=== PATIENT | female | born 1995 | race Caucasian/White ===

== ENCOUNTER 2017-05-13 18:02 | Emergency (ER) | payer OTHER ==
--- NOTE | 2017-05-13 20:34 | DIAGNOSTIC IMAGING REPORT ---
PROCEDURE: CT ABD/PELVIS WITH CONTRAST CLINICAL INDICATION: ABDOMINAL PAIN TECHNIQUE: 125 ml of Isovue 300 were injected intravenously and axial images were obtained of the entire abdomen and pelvis with sagittal and coronal reformations. COMPARISON: None. FINDINGS: ABDOMEN: Lung bases are clear. Normal heart size. Liver, gallbladder, pancreas, spleen, adrenal glands and kidneys are normal. Normal abdominal aorta. Moderate stool in the ascending colon. PELVIS: Normal appendix. 1.9 cm involuting right ovarian cyst. Uterus and bladder are normal. No inflammatory changes or free fluid. Bones are unremarkable. IMPRESSION: 1. 1.9 cm involuting right ovarian cyst 2. Results discussed with Ileana Patel All CT scans at this facility use dose modulation, iterative reconstruction, and/or weight-based dosing when appropriate to reduce radiation dose to as low as reasonably achievable.
--- NOTE | 2017-05-13 21:53 | ED CLINICAL REPORT ---
Clinical Report - Physicians/Mid Levels [facility] [address] [place] [address] 05/13/2017 18:02 Patient: SILVA BLANC Time Seen: 19:19; initial patient contact, initial documentation, patient care assumed. Arrived- By private vehicle. Historian- patient. HISTORY OF PRESENT ILLNESS Chief Complaint: ABDOMINAL PAIN. At its maximum, severity described as severe. When seen in the E.D., severity described as severe. Modifying factors- worsened by movement. Not relieved by anything. It is described as "pain", sharp and stabbing. No radiation. It is described as located in the right lower quadrant. This started yesterday and is still present. It was abrupt in onset and has been constant. No nausea, loss of appetite, vomiting or diarrhea. No additional abdominal pain. No recent travel. Similar symptoms previously: None. Recent medical care: Not recently seen/assessed. REVIEW OF SYSTEMS No constipation, black stools, hematemesis, difficulty with urination or pain with urination. No urinary frequency, missed periods, abnormal bleeding, fever or chest pain. No difficulty breathing. Denies current . All systems otherwise negative, except as recorded above. PAST HISTORY See nurses notes. PROBLEMS: Pharyngitis. Strep Throat. Bartholin's Abscess. Acute Pain. Immunizations. LNMP - Last Normal Menstrual Period. --19:02 Mayank Neff R.N. Peritonsillar Abscess [RuleOut]. Tonsillitis [RuleOut]. --19:02 Mayank Neff R.N. ADDITIONAL SURGERIES: Bartolian cyst. --19:03 Mayank eNff R.N. SOCIAL HISTORY Light tobacco smoker. Occasional alcohol use. History of occasional IV drug use: heroin. No recent travel. Is a local resident. FAMILY HISTORY Negative. ADDITIONAL NOTES The nursing notes have been reviewed with agreement regarding the chief complaint, HPI, ROS, PMH and patient medications and allergies. PHYSICAL EXAM Vital Signs: 05/13/2017 19:00 BP: 144/89. HR: 114. RR: 16. O2 saturation: 100%. Temp: 98.1 F. Pain level now: 06/02. Have been reviewed as abnormal and appear to be correct. Hypertensive. Tachycardic. Respiratory rate normal. Temperature normal. Oxygen saturation normal. Appearance: Alert. Oriented X3. No acute distress. Eyes: Pupils equal, round and reactive to light. Eyes normal inspection. Neck: Normal inspection. Neck supple. CVS: Heart rate / rhythm abnormal. Tachycardia (ventricular rate = 110). Heart sounds normal. Pulses normal. Respiratory: No respiratory distress. Breath sounds normal. Chest nontender. Abdomen: Soft. Moderate tenderness in the right lower quadrant with guarding present. No rebound tenderness or Lee's, obturator or psoas sign present. Bowel sounds normal. No organomegaly. No mass. Tenderness present. Back: Normal inspection. Skin: Skin warm and dry. Normal skin color. No rash. Normal skin turgor. Extremities: Extremities exhibit normal ROM. No lower extremity edema. Neuro: Oriented X 3. No motor deficit. No sensory deficit. LABS, X-RAYS, AND EKG Abdominal CT: An ovarian cyst is present. . The study was interpreted by the radiologist and discussed with the radiologist. Interpretation time: 20:33. Laboratory Tests: UA-Culture if indicated: (TORIN: 05/13/2017 18:45) ( MsgRcvd 05/13/2017 19:39) Final results Test Result Flag Units (Reference) URINE COLOR YELLOW URINE APPEARANCE CLEAR URINE GLUCOSE NEGATIVE (NEGATIVE) URINE BILIRUBIN NEGATIVE (NEGATIVE) URINE KETONE NEGATIVE (NEGATIVE) URINE SPECIFIC GRAVITY >= 1.030 (1.010-1.030) URINE PH 6.0 (5.0-8.0) URINE PROTEIN NEGATIVE (NEGATIVE) URINE UROBILINOGEN 0.2 EU/dL (0.2-1.0) URINE NITRITE NEGATIVE (NEGATIVE) URINE BLOOD NEGATIVE (NEGATIVE) URINE LEUK ESTERASE NEGATIVE (NEGATIVE) URINE RBC RARE rbc/hpf (0-1) URINE WBC 3-5 wbc/hpf (0-1) URINE EPITHELIAL CELLS 3-5 EPI/hpf (0-5) URINE BACTERIA MODERATE (2+ TO 3+) (NONE SEEN) URINE COMMENT CULTURE INDICATED 1+ MUCUSURINE CULTURES ARE SET-UP BASED ON THE FOLLOWING CRITERIA:POSITIVE NITRITEPOSITIVE LEUKOCYTE ESTERASEGREATER THAN 10 WHITE BLOOD CELLSMODERATE (2+) OR GREATER BACTERIA Urine: (TORIN: 05/13/2017 18:45) ( [facility]20) Final results Test Result Flag Units (Reference) URINE NEGATIVE CBC w Diff: (TORIN: 05/13/2017 19:20) ( [facility] 05/13/2017 19:47) Final results Test Result Flag Units (Reference) WHITE BLOOD COUNT 13.3 H K/uL (4.5-11.5) RED BLOOD COUNT 4.70 M/uL (4.00-5.20) HEMOGLOBIN 12.9 gm/dL (12.0-16.0) HEMATOCRIT 38.4 % (36.0-46.0) MEAN CELL VOLUME 82 fL (80-100) MEAN CORPUSCULAR HGB 28 pg (26-34) MEAN CORPUSCULAR HGB CONC 34 g/dL (31-37) RED CELL DISTRIBUTION WIDTH 13.2 % (11.6-14.8) PLATELET COUNT 446 H K/uL (150-400) NEUTROPHIL % 68.5 % (50-75) LYMPH % 24.6 L % (25-40) MONO % 6.4 % (3-14) EOSINOPHIL % 0.2 % (0-4) BASOPHIL % 0.3 % (0-2) CMP: (TORIN: 05/13/2017 19:20) ( [facility] [place] 05/13/2017 20:08) Final results Test Result Flag Units (Reference) GLUCOSE 90 mg/dL (70-110) BUN 8 mg/dL (7-18) CREATININE 0.9 mg/dL (0.6-1.3) Estimated GFR >60 mL/min Estimated GFR- >60 mL/min Note: Persistent reduction over 3 months in eGFR<60 mL/min/1.73 m2 defines CKD. Patients with eGFR values>=60 mL/min/1.73 m2 may also have CKD if evidence ofpersistent proteinuria. Additional information may be foundat www.kidney.org. SODIUM 136 mmol/L (136-145) POTASSIUM 3.5 mmol/L (3.5-5.1) CHLORIDE 100 mmol/L (98-107) CARBON DIOXIDE 26 mmol/L (21-32) CALCIUM 8.9 mg/dL (8.5-10.1) TOTAL PROTEIN 7.7 g/dL (6.4-8.2) ALBUMIN 4.0 g/dL (3.3-5.0) BILIRUBIN, TOTAL 0.5 mg/dL (0.0-1.0) ALKALINE PHOSPHATASE 112 U/L (46-116) AST (SGOT) 20 U/L (15-37) ALT (SGPT) 21 U/L (12-78) LIPASE 66 L U/L (73-393) AMYLASE 47 U/L (25-115) . PROGRESS AND PROCEDURES Course of Care: 05/13/2017 20:16 BP: 102/67. HR: 102. RR: 20. O2 saturation: 99%. Pain level now: 7/10. Vital Signs: have been reviewed as normal and appear to be correct. Patient and family counseled in person regarding the patient's stable condition, test results and diagnosis. Differential Diagnosis: I considered gastritis, gastroenteritis, peptic ulcer disease, gastroesophageal reflux disease, acute appendicitis, diverticulitis, colon cancer, ulcerative colitis, Crohn's disease, biliary colic, cholecystitis, cholelithiasis, hepatitis, pancreatitis, urinary tract infection, ureterolithiasis, ovarian cyst, ovarian torsion, , ectopic , pelvic inflammatory disease and viral syndrome as a possible cause of abdominal pain in this patient. This is a partial list of diagnoses considered. Above considerations are based on history, physical exam, reassessment, laboratory data and other information. Differential diagnosis was discussed with patient. Disposition: Discharged home in good and improved condition (21:36). Condition: good and stable. CLINICAL IMPRESSION Acute right lower quadrant abdominal pain. Single simple right ovarian cyst. No ruptured ovarian cyst, torsion of ovary or polycystic ovarian disease. INSTRUCTIONS Warnings: GENERAL WARNINGS: Return or contact your physician immediately if your condition worsens or changes unexpectedly, if not improving as expected, or if other problems arise. SPECIFICALLY, return if you develop pain in the abdomen or pelvis, fever, the inability to keep fluids down, blood in vomitus, blood in diarrhea, fainting, lightheadedness or vaginal bleeding. Prescription Medications: Ultram 50 mg tablets: take 1-2 orally every 6 hours as needed for pain. Dispense twenty (20). No refills. Substitution is permissible. Follow-up: Follow up with your doctor in about two days even if well. Call for an appointment. Summary of care provided to patient. Understanding of the discharge instructions verbalized by patient. (Electronically signed by Ileana Patel A.R.N.P. 05/13/2017 23:04)
--- NOTE | 2017-05-13 21:53 | ED ORDER SUMMARY ---
..... Patient: SILVA BLANC OrderSheet [facility] VisitID: [id number] [place] [address] 22y, F Registration Date/Time: 05/13/2017 ORDER SHEET Weight: 64.4 kg (stated) Allergies: No Known Drug Allergy GENERAL ORDERS: UA-Culture if indicated Urgent (19:05/13/2017 JBoardley R.N. per protocol) (Ack 19:12 PWeiler ER Tech1) (19:17 JBoardley R.N.) Urine Urgent (19:05/13/2017 JBoardley R.N. per protocol) (Ack 19:12 PWeiler ER Tech1) (19:17 JBoardley R.N.) CT Abd/Pel w Cont (No) (pending) Urgent (19:30 05/13/2017 HBivens A.R.N.P.) (Ack 19:32 AMcQuoid ER Tech1) (20:00 MCampbell) CBC w Diff Urgent (19:31 05/13/2017 HBivens A.R.N.P.) (Ack 19:32 AMcQuoid ER Tech1) (19:34 JSanders R.N.) CMP Urgent (19:05/13/2017 HBivens A.R.N.P.) (Ack 19:32 AMcQuoid ER Tech1) (19:34 JSanders R.N.) Amylase Urgent (19:05/13/2017 HBivens A.R.N.P.) (Ack 19:32 AMcQuoid ER Tech1) (19:34 JSanders R.N.) Lipase Urgent (19:31 05/13/2017 HBivens A.R.N.P.) (Ack 19:32 AMcQuoid ER Tech1) (19:34 JSanders R.N.) MEDICATION ORDERS: IV FLUIDS: IV NS : initial bolus 1000 mL (1000 mL/hr), then none - (NOW) (19:30 05/13/2017 HBivens A.R.N.P.) (19:42 JSanders R.N.) Toradol IV 30 mg (NOW) (19:30 05/13/2017 HBivens A.R.N.P.) (19:42 Omar R.N.) IV Saline Lock (19:31 05/13/2017 HBivens A.R.N.P.) (19:33 Cassie R.N.) ORDER SHEET NOTES: [Electronically signed by Vashti Garza R.N. (21:52 05/13/2017)] [Electronically locked/signed by Vashti Garza R.N. (21:52 05/13/2017)]
--- NOTE | 2017-05-13 21:53 | ED ORDER SUMMARY ---
..... Patient: SILVA BLANC OrderSheet [facility] VisitID: [id number] [place] [address] 22y, F Registration Date/Time: 05/13/2017 ORDER SHEET Weight: 64.4 kg (stated) Allergies: No Known Drug Allergy GENERAL ORDERS: UA-Culture if indicated Urgent (19:05/13/2017 JBoardley R.N. per protocol) (Ack 19:12 PWeiler ER Tech1) (19:17 JBoardley R.N.) Urine Urgent (19:05/13/2017 JBoardley R.N. per protocol) (Ack 19:12 PWeiler ER Tech1) (19:17 JBoardley R.N.) CT Abd/Pel w Cont (No) (pending) Urgent (19:30 05/13/2017 HBivens A.R.N.P.) (Ack 19:32 AMcQuoid ER Tech1) (20:00 MCampbell) CBC w Diff Urgent (19:31 05/13/2017 HBivens A.R.N.P.) (Ack 19:32 AMcQuoid ER Tech1) (19:34 JSanders R.N.) CMP Urgent (19:05/13/2017 HBivens A.R.N.P.) (Ack 19:32 AMcQuoid ER Tech1) (19:34 JSanders R.N.) Amylase Urgent (19:05/13/2017 HBivens A.R.N.P.) (Ack 19:32 AMcQuoid ER Tech1) (19:34 JSanders R.N.) Lipase Urgent (19:31 05/13/2017 HBivens A.R.N.P.) (Ack 19:32 AMcQuoid ER Tech1) (19:34 JSanders R.N.) MEDICATION ORDERS: IV FLUIDS: IV NS : initial bolus 1000 mL (1000 mL/hr), then none - (NOW) (19:30 05/13/2017 HBivens A.R.N.P.) (19:42 JSanders R.N.) Toradol IV 30 mg (NOW) (19:30 05/13/2017 HBivens A.R.N.P.) (19:42 Omar R.N.) IV Saline Lock (19:31 05/13/2017 HBivens A.R.N.P.) (19:33 Cassie R.N.) ORDER SHEET NOTES: [Electronically signed by Vashti Garza R.N. (21:52 05/13/2017)] [Electronically locked/signed by Vashti Garza R.N. (21:52 05/13/2017)]
--- NOTE | 2017-05-13 21:53 | ED NURSING NOTES ---
Clinical Report - Nurses [facility] [address] [place] [address] 05/13/2017 18:02 Patient: SILVA BLANC TRIAGE Triage time 19:00. Acuity: LEVEL 3. Chief Complaint: ABDOMINAL PAIN. 19:00 05/13/17. 19:00 05/13/17. Alert. --19:05 Mayank Neff R.N. 19:00 05/13/17. BP: 144/89. HR: 114. RR: 16. O2 saturation: 100% on room air. Temp: 98.1 F (oral). Pain level now: 06/02. --19:05 Mayank Neff R.N. Weight: 64.4 kg stated. Height/Length: 61 inches Per Patient. BMI: 26.8. --19:02 Mayank Neff R.N. Medications Methadone HCl Oral 120mg, daily, substance abuse. --19:02 Mayank Neff R.N. Medication/allergy information source: the patient. --19:05 Mayank Neff R.N. Allergies No Known Drug Allergy. --19:02 Mayank Neff R.N. History Arrived by private vehicle. Historian: patient. Primary physician (NONE). 19:00 05/13/17. This started yesterday. 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 PAST MEDICAL HX: Last normal menstrual period- 3 weeks ago. Immunizations not up to date. SOCIAL HX: Current every day light tobacco smoker (cigarette)- less than 1/2 a pack per day. Occasional alcohol use. History of occasional drug use: heroin. No recent travel. No infectious disease exposure. No known contact with a sick individual. ABUSE ASSESSMENT: No report of abuse. FALL RISK ASSESSMENT: Fall risk assessment completed. No fall risk identified. NUTRITIONAL RISK ASSESSMENT: The nutritional risk assessment revealed no deficiencies. FUNCTIONAL ASSESSMENT: Functional assessment: no impairments noted. LEARNING NEEDS ASSESSMENT: The learning needs assessment revealed no barriers. SKIN INTEGRITY ASSESSMENT: Skin integrity risk assessment completed. No skin integrity risk identified. --19:05 Mayank Neff R.N. PROBLEMS: Pharyngitis. Strep Throat. Bartholin's Abscess. Acute Pain. Immunizations. LNMP - Last Normal Menstrual Period. --19:02 Mayank Neff R.N. Peritonsillar Abscess [RuleOut]. Tonsillitis [RuleOut]. --19:02 Mayank Neff R.N. ADDITIONAL SURGERIES: Bartolian cyst. --19:03 Mayank Neff R.N. Assessment 19:00 05/13/17. --19:05 Mayank Neff R.N. Interventions 19:00 05/13/17. 19:00 05/13/17. ID and allergy band on patient. To treatment room. --19:05 Mayank Neff R.N. PHYSICAL ASSESSMENT 19:05/13/17. Ambulatory to room. GENERAL / NEURO / PSYCH: Alert. Oriented X 4. RESPIRATORY: Respirations not labored. CVS: Capillary refill less than 2 seconds. GI / : Abdominal tenderness in the epigastric area. SKIN: Skin is warm and dry. --19:02 Mayank Neff R.N. NURSING PROGRESS NOTES 19:02 05/13/17. The plan of care for this patient has been created. Patient gowned. Head of bed elevated. Reassurance given. Two patient identifiers checked. Call light placed in reach. Side rails up x 2. Bed placed in lowest position. Brakes of bed on. --19:02 Mayank Neff R.N. 19:16 05/13/17. Care transferred and report given. --19:16 Mayank Neff R.N. Care transferred and report received (Mayank, RN). --19:17 Carol Roth R.N. 19:23 05/13/2017 Site #1 started via IV in the left hand with an 20g angiocath, with aseptic technique and good blood return; one attempt. Blood drawn: rainbow set. Labeled in the presence of the patient and sent to the lab. Saline lock flushed with 10 mL saline. --19:33 Mayank Neff R.N. 19:42 05/13/2017 Started bag #1 1000 mL IV Fluids IV NS (Saline); bolus of 1000 mL over 1 hour(s) then at 1000 mL/hr over 1 hour(s) via site #1 via dial-a-flow. Allergies verified and confirmed 5 rights. IV patency established. IV site checked: no pain, redness, or swelling. IV flushed thoroughly pre- and post-medication administration. --19:42 Carol Roth R.N. 19:42 05/13/2017 Toradol IVP 30 mg given over 1 minute(s) via site #1. Allergies verified and confirmed 5 rights. IV patency established. IV site checked: no pain, redness, or swelling. IV flushed thoroughly pre- and post-medication administration. IVP given by RN. --19:42 Carol Roth R.N. 19:42 05/13/17. BP: 121/73 (regular adult cuff) taken on the right arm, while sitting. HR: 106. RR: 18. O2 saturation: 100% on room air. Pain level now: 510. --19:46 Carol Roth R.N. Patient transported to [place] by [place] with [employer]. (19:52 May 13 2017). --19:52 Carol Rtoh R.N. Patient returned from CT by stretcher with [employer]. (20:05 May 13 2017). --20:05 Carol Roth R.N. 20:16 05/13/17. BP: 102/67 (regular adult cuff) taken on the right arm, while sitting. HR: 102. RR: 20. O2 saturation: 99% on room air. Pain level now: 7/10. --20:16 Carol Roth R.N. ( Patient doing ok, her pain has increased to a 7/10.). --20:16 Carol Roth R.N. 20:17 05/13/2017 Toradol IVP Response: no adverse reaction symptoms are the same. The patient feels the same. --20:17 Carol Roth R.N. 20:51 05/13/2017 IV Fluids IV NS Discontinued: bag #1 completed. Total amount infused: 1000 mL. IV patency established. IV site checked: no pain, redness, or swelling. IV flushed thoroughly. --20:51 Carol Roth R.N. 21:00 05/13/2017 Site #1 removed upon discharge. Bandaid applied. --21:00 Carol Roth R.N. DISPOSITION / DISCHARGE Condition at departure: stable. No learning barriers present. Discharge instructions provided and reviewed with the patient. Reviewed medication(s). Prescription(s) given to the patient (pt refused to listen to discharge teaching. printed precautions & side effects given.). Written instructions provided in Urdu. The patient was discharged home. She left the Emergency Department ambulatory and via private vehicle. ( Pt angry upon discharge, standing outside of room, states "I literally have 10 min to get to work, I just want my paperwork so I can go!".). --21:51 Vashti Garza R.N. 21:49 05/13/17. BP: unable to obtain. HR: unable to obtain. RR: 15 (regular and unlabored). O2 saturation: unable to obtain. Temp: unable to obtain. Lopez-Sexton pain scale: 4/10. --21:51 Vashti Garza R.N. Locked/Released at 05/13/2017 21:52 by Vashti Garza R.N.
--- NOTE | 2017-05-13 21:53 | ED CLINICAL REPORT ---
Clinical Report - Physicians/Mid Levels [facility] [address] [place] [address] 05/13/2017 18:02 Patient: SILVA BLANC Time Seen: 19:19; initial patient contact, initial documentation, patient care assumed. Arrived- By private vehicle. Historian- patient. HISTORY OF PRESENT ILLNESS Chief Complaint: ABDOMINAL PAIN. At its maximum, severity described as severe. When seen in the E.D., severity described as severe. Modifying factors- worsened by movement. Not relieved by anything. It is described as "pain", sharp and stabbing. No radiation. It is described as located in the right lower quadrant. This started yesterday and is still present. It was abrupt in onset and has been constant. No nausea, loss of appetite, vomiting or diarrhea. No additional abdominal pain. No recent travel. Similar symptoms previously: None. Recent medical care: Not recently seen/assessed. REVIEW OF SYSTEMS No constipation, black stools, hematemesis, difficulty with urination or pain with urination. No urinary frequency, missed periods, abnormal bleeding, fever or chest pain. No difficulty breathing. Denies current . All systems otherwise negative, except as recorded above. PAST HISTORY See nurses notes. PROBLEMS: Pharyngitis. Strep Throat. Bartholin's Abscess. Acute Pain. Immunizations. LNMP - Last Normal Menstrual Period. --19:02 Mayank Neff R.N. Peritonsillar Abscess [RuleOut]. Tonsillitis [RuleOut]. --19:02 Mayank Neff R.N. ADDITIONAL SURGERIES: Bartolian cyst. --19:03 Mayank Neff R.N. SOCIAL HISTORY Light tobacco smoker. Occasional alcohol use. History of occasional IV drug use: heroin. No recent travel. Is a local resident. FAMILY HISTORY Negative. ADDITIONAL NOTES The nursing notes have been reviewed with agreement regarding the chief complaint, HPI, ROS, PMH and patient medications and allergies. PHYSICAL EXAM Vital Signs: 05/13/2017 19:00 BP: 144/89. HR: 114. RR: 16. O2 saturation: 100%. Temp: 98.1 F. Pain level now: 06/02. Have been reviewed as abnormal and appear to be correct. Hypertensive. Tachycardic. Respiratory rate normal. Temperature normal. Oxygen saturation normal. Appearance: Alert. Oriented X3. No acute distress. Eyes: Pupils equal, round and reactive to light. Eyes normal inspection. Neck: Normal inspection. Neck supple. CVS: Heart rate / rhythm abnormal. Tachycardia (ventricular rate = 110). Heart sounds normal. Pulses normal. Respiratory: No respiratory distress. Breath sounds normal. Chest nontender. Abdomen: Soft. Moderate tenderness in the right lower quadrant with guarding present. No rebound tenderness or Lee's, obturator or psoas sign present. Bowel sounds normal. No organomegaly. No mass. Tenderness present. Back: Normal inspection. Skin: Skin warm and dry. Normal skin color. No rash. Normal skin turgor. Extremities: Extremities exhibit normal ROM. No lower extremity edema. Neuro: Oriented X 3. No motor deficit. No sensory deficit. LABS, X-RAYS, AND EKG Abdominal CT: An ovarian cyst is present. . The study was interpreted by the radiologist and discussed with the radiologist. Interpretation time: 20:33. Laboratory Tests: UA-Culture if indicated: (TORIN: 05/13/2017 18:45) ( MsgRcvd 05/13/2017 19:39) Final results Test Result Flag Units (Reference) URINE COLOR YELLOW URINE APPEARANCE CLEAR URINE GLUCOSE NEGATIVE (NEGATIVE) URINE BILIRUBIN NEGATIVE (NEGATIVE) URINE KETONE NEGATIVE (NEGATIVE) URINE SPECIFIC GRAVITY >= 1.030 (1.010-1.030) URINE PH 6.0 (5.0-8.0) URINE PROTEIN NEGATIVE (NEGATIVE) URINE UROBILINOGEN 0.2 EU/dL (0.2-1.0) URINE NITRITE NEGATIVE (NEGATIVE) URINE BLOOD NEGATIVE (NEGATIVE) URINE LEUK ESTERASE NEGATIVE (NEGATIVE) URINE RBC RARE rbc/hpf (0-1) URINE WBC 3-5 wbc/hpf (0-1) URINE EPITHELIAL CELLS 3-5 EPI/hpf (0-5) URINE BACTERIA MODERATE (2+ TO 3+) (NONE SEEN) URINE COMMENT CULTURE INDICATED 1+ MUCUSURINE CULTURES ARE SET-UP BASED ON THE FOLLOWING CRITERIA:POSITIVE NITRITEPOSITIVE LEUKOCYTE ESTERASEGREATER THAN 10 WHITE BLOOD CELLSMODERATE (2+) OR GREATER BACTERIA Urine: (TORIN: 05/13/2017 18:45) ( [facility] [place] Final results Test Result Flag Units (Reference) URINE NEGATIVE CBC w Diff: (TORIN: 05/13/2017 19:20) ( [facility] [place] [facility]13[facility] 19:47) Final results Test Result Flag Units (Reference) WHITE BLOOD COUNT 13.3 H K/uL (4.5-11.5) RED BLOOD COUNT 4.70 M/uL (4.00-5.20) HEMOGLOBIN 12.9 gm/dL (12.0-16.0) HEMATOCRIT 38.4 % (36.0-46.0) MEAN CELL VOLUME 82 fL (80-100) MEAN CORPUSCULAR HGB 28 pg (26-34) MEAN CORPUSCULAR HGB CONC 34 g/dL (31-37) RED CELL DISTRIBUTION WIDTH 13.2 % (11.6-14.8) PLATELET COUNT 446 H K/uL (150-400) NEUTROPHIL % 68.5 % (50-75) LYMPH % 24.6 L % (25-40) MONO % 6.4 % (3-14) EOSINOPHIL % 0.2 % (0-4) BASOPHIL % 0.3 % (0-2) CMP: (TORIN: 05/13/2017 19:20) ( [facility] 05/13/[facility] 20:08) Final results Test Result Flag Units (Reference) GLUCOSE 90 mg/dL (70-110) BUN 8 mg/dL (7-18) CREATININE 0.9 mg/dL (0.6-1.3) Estimated GFR >60 mL/min Estimated GFR- >60 mL/min Note: Persistent reduction over 3 months in eGFR<60 mL/min/1.73 m2 defines CKD. Patients with eGFR values>=60 mL/min/1.73 m2 may also have CKD if evidence ofpersistent proteinuria. Additional information may be foundat [email or web address]. SODIUM 136 mmol/L (136-145) POTASSIUM 3.5 mmol/L (3.5-5.1) CHLORIDE 100 mmol/L (98-107) CARBON DIOXIDE 26 mmol/L (21-32) CALCIUM 8.9 mg/dL (8.5-10.1) TOTAL PROTEIN 7.7 g/dL (6.4-8.2) ALBUMIN 4.0 g/dL (3.3-5.0) BILIRUBIN, TOTAL 0.5 mg/dL (0.0-1.0) ALKALINE PHOSPHATASE 112 U/L (46-116) AST (SGOT) 20 U/L (15-37) ALT (SGPT) 21 U/L (12-78) LIPASE 66 L U/L (73-393) AMYLASE 47 U/L (25-115) . PROGRESS AND PROCEDURES Course of Care: 05/13/2017 20:16 BP: 102/67. HR: 102. RR: 20. O2 saturation: 99%. Pain level now: 7/10. Vital Signs: have been reviewed as normal and appear to be correct. Patient and family counseled in person regarding the patient's stable condition, test results and diagnosis. Differential Diagnosis: I considered gastritis, gastroenteritis, peptic ulcer disease, gastroesophageal reflux disease, acute appendicitis, diverticulitis, colon cancer, ulcerative colitis, Crohn's disease, biliary colic, cholecystitis, cholelithiasis, hepatitis, pancreatitis, urinary tract infection, ureterolithiasis, ovarian cyst, ovarian torsion, , ectopic , pelvic inflammatory disease and viral syndrome as a possible cause of abdominal pain in this patient. This is a partial list of diagnoses considered. Above considerations are based on history, physical exam, reassessment, laboratory data and other information. Differential diagnosis was discussed with patient. Disposition: Discharged home in good and improved condition (21:36). Condition: good and stable. CLINICAL IMPRESSION Acute right lower quadrant abdominal pain. Single simple right ovarian cyst. No ruptured ovarian cyst, torsion of ovary or polycystic ovarian disease. INSTRUCTIONS Warnings: GENERAL WARNINGS: Return or contact your physician immediately if your condition worsens or changes unexpectedly, if not improving as expected, or if other problems arise. SPECIFICALLY, return if you develop pain in the abdomen or pelvis, fever, the inability to keep fluids down, blood in vomitus, blood in diarrhea, fainting, lightheadedness or vaginal bleeding. Prescription Medications: Ultram 50 mg tablets: take 1-2 orally every 6 hours as needed for pain. Dispense twenty (20). No refills. Substitution is permissible. Follow-up: Follow up with your doctor in about two days even if well. Call for an appointment. Summary of care provided to patient. Understanding of the discharge instructions verbalized by patient. (Electronically signed by Ileana Patel A.R.N.P. 05/13/2017 23:04)
--- NOTE | 2017-05-13 21:53 | ED NURSING NOTES ---
Clinical Report - Nurses [facility] [address] [place] [address] 05/13/2017 18:02 Patient: SILVA BLANC TRIAGE Triage time 19:00. Acuity: LEVEL 3. Chief Complaint: ABDOMINAL PAIN. 19:00 05/13/17. 19:00 05/13/17. Alert. --19:05 Mayank Nfef R.N. 19:00 05/13/17. BP: 144/89. HR: 114. RR: 16. O2 saturation: 100% on room air. Temp: 98.1 F (oral). Pain level now: 06/02. --19:05 Mayank Neff R.N. Weight: 64.4 kg stated. Height/Length: 61 inches Per Patient. BMI: 26.8. --19:02 Mayank Neff R.N. Medications Methadone HCl Oral 120mg, daily, substance abuse. --19:02 Mayank Neff R.N. Medication/allergy information source: the patient. --19:05 Mayank Neff R.N. Allergies No Known Drug Allergy. --19:02 Mayank Neff R.N. History Arrived by private vehicle. Historian: patient. Primary physician (NONE). 19:00 05/13/17. This started yesterday. Treatment [facility] [employer] THERAPIST: (Methadone this AM). PAST MEDICAL HX: Last normal menstrual period- 3 weeks ago. Immunizations not up to date. SOCIAL HX: Current every day light tobacco smoker (cigarette)- less than 1/2 a pack per day. Occasional alcohol use. History of occasional drug use: heroin. No recent travel. No infectious disease exposure. No known contact with a sick individual. ABUSE ASSESSMENT: No report of abuse. FALL RISK ASSESSMENT: Fall risk assessment completed. No fall risk identified. NUTRITIONAL RISK ASSESSMENT: The nutritional risk assessment revealed no deficiencies. FUNCTIONAL ASSESSMENT: Functional assessment: no impairments noted. LEARNING NEEDS ASSESSMENT: The learning needs assessment revealed no barriers. SKIN INTEGRITY ASSESSMENT: Skin integrity risk assessment completed. No skin integrity risk identified. --19:05 Mayank Neff R.N. PROBLEMS: Pharyngitis. Strep Throat. Bartholin's Abscess. Acute Pain. Immunizations. LNMP - Last Normal Menstrual Period. --19:02 Mayank Neff R.N. Peritonsillar Abscess [RuleOut]. Tonsillitis [RuleOut]. --19:02 Mayank Neff R.N. ADDITIONAL SURGERIES: Bartolian cyst. --19:03 Mayank Neff R.N. Assessment 19:00 05/13/17. --19:05 Mayank Neff R.N. Interventions 19:00 05/13/17. 19:00 05/13/17. ID and allergy band on patient. To treatment room. --19:05 Mayank Neff R.N. PHYSICAL ASSESSMENT 19:05/13/17. Ambulatory to room. GENERAL / NEURO / PSYCH: Alert. Oriented X 4. RESPIRATORY: Respirations not labored. CVS: Capillary refill less than 2 seconds. GI / : Abdominal tenderness in the epigastric area. SKIN: Skin is warm and dry. --19:02 Mayank Neff R.N. NURSING PROGRESS NOTES 19:02 05/13/17. The plan of care for this patient has been created. Patient gowned. Head of bed elevated. Reassurance given. Two patient identifiers checked. Call light placed in reach. Side rails up x 2. Bed placed in lowest position. Brakes of bed on. --19:02 Mayank Neff R.N. 19:16 05/13/17. Care transferred and report given. --19:16 Mayank Neff R.N. Care transferred and report received (Mayank, RN). --19:17 Carol Roth R.N. 19:23 05/13/2017 Site #1 started via IV in the left hand with an 20g angiocath, with aseptic technique and good blood return; one attempt. Blood drawn: rainbow set. Labeled in the presence of the patient and sent to the lab. Saline lock flushed with 10 mL saline. --19:33 Mayank Neff R.N. 19:42 05/13/2017 Started bag #1 1000 mL IV Fluids IV NS (Saline); bolus of 1000 mL over 1 hour(s) then at 1000 mL/hr over 1 hour(s) via site #1 via dial-a-flow. Allergies verified and confirmed 5 rights. IV patency established. IV site checked: no pain, redness, or swelling. IV flushed thoroughly pre- and post-medication administration. --19:42 Carol Roth R.N. 19:42 05/13/2017 Toradol IVP 30 mg given over 1 minute(s) via site #1. Allergies verified and confirmed 5 rights. IV patency established. IV site checked: no pain, redness, or swelling. IV flushed thoroughly pre- and post-medication administration. IVP given by RN. --19:42 Carol Roth R.N. 19:42 05/13/17. BP: 121/73 (regular adult cuff) taken on the right arm, while sitting. HR: 106. RR: 18. O2 saturation: 100% on room air. Pain level now: 510. --19:46 Carol Roth R.N. Patient transported to [place] by [facility] with [employer]. (19:52 May 13 2017). --19:52 Carol Roth R.N. Patient returned from CT by stretcher with [employer]. (20:05 May 13 2017). --20:05 Carol Roth R.N. 20:16 05/13/17. BP: 102/67 (regular adult cuff) taken on the right arm, while sitting. HR: 102. RR: 20. O2 saturation: 99% on room air. Pain level now: 7/10. --20:16 Carol Roth R.N. ( Patient doing ok, her pain has increased to a 7/10.). --20:16 Carol Roth R.N. 20:17 05/13/2017 Toradol IVP Response: no adverse reaction symptoms are the same. The patient feels the same. --20:17 Carol Roth R.N. 20:51 05/13/2017 IV Fluids IV NS Discontinued: bag #1 completed. Total amount infused: 1000 mL. IV patency established. IV site checked: no pain, redness, or swelling. IV flushed thoroughly. --20:51 Carol Roth R.N. 21:00 05/13/2017 Site #1 removed upon discharge. Bandaid applied. --21:00 Carol Roth R.N. DISPOSITION / DISCHARGE Condition at departure: stable. No learning barriers present. Discharge instructions provided and reviewed with the patient. Reviewed medication(s). Prescription(s) given to the patient (pt refused to listen to discharge teaching. printed precautions & side effects given.). Written instructions provided in Kazakh. The patient was discharged home. She left the Emergency Department ambulatory and via private vehicle. ( Pt angry upon discharge, standing outside of room, states "I literally have 10 min to get to work, I just want my paperwork so I can go!".). --21:51 Vashti Garza R.N. 21:49 05/13/17. BP: unable to obtain. HR: unable to obtain. RR: 15 (regular and unlabored). O2 saturation: unable to obtain. Temp: unable to obtain. Lopez-Sexton pain scale: 4/10. --21:51 Vashti Garza R.N. Locked/Released at 05/13/2017 21:52 by Vashti Garza R.N.
--- NOTE | 2017-05-13 23:04 | ED MAR SUMMARY ---
..... Medication Administration Record Formerly [facility] [address] [place] [address] Patient: SILVA BLANC Visit ID: [id number] 22y, F Weight: 64.4 kg Height/Length: 61 in BMI: 26.8 ALLERGIES: No Known Drug Allergy Start 19:42 05/13/2017 Carol Roth R.N., Stop 20:51 05/13/2017 Carol Roth R.N. Medication Administered: IV NS (SALINE), Dose: IV Fluids over 1 hour(s), Rate: 1000 mL/hr, Bolus: 1000 mL over 1 hour(s), Dispensed: 1000 mL bag, Site: #1 left hand. Medication Ordered: IV NS : initial bolus 1000 mL (1000 mL/hr), then none - (NOW). Given 19:42 05/13/2017 Carol Roth R.N. Medication Administered: TORADOL [IVP], Dose: 30 mg IVP over 1 minute(s), Site: #1 left hand. Medication Ordered: Toradol IV 30 mg (NOW).
--- NOTE | 2017-05-13 23:04 | ED DISCHARGE INSTRUCTIONS ---
Patient: SILVA BLANC General Instructions [facility] VisitID: [id number] [place] [address] 22y, F Registration Date/Time: 05/13/2017 Acute right lower quadrant abdominal pain. Single simple right ovarian cyst. No ruptured ovarian cyst, torsion of ovary or polycystic ovarian disease. INSTRUCTIONS Warnings: GENERAL WARNINGS: Return or contact your physician immediately if your condition worsens or changes unexpectedly, if not improving as expected, or if other problems arise. SPECIFICALLY, return if you develop pain in the abdomen or pelvis, fever, the inability to keep fluids down, blood in vomitus, blood in diarrhea, fainting, lightheadedness or vaginal bleeding. Prescription Medications: Ultram 50 mg tablets: take 1-2 orally every 6 hours as needed for pain. Dispense twenty (20). No refills. Substitution is permissible. Follow-up: Follow up with your doctor in about two days even if well. Call for an appointment. Summary of care provided to patient. Understanding of the discharge instructions verbalized by patient. ADDITIONAL INFORMATION Abdominal Pain, Unknown Cause (Female) The exact cause of your abdominal (stomach) pain is not certain. This does not mean that this is something to worry about, or the right tests were not done. Everyone likes to know the exact cause of the problem, but sometimes with abdominal pain, there is no clear-cut cause, and this could be a good thing. The good news is that your symptoms can be treated, and you will feel better. Your condition does not seem serious now; however, sometimes the signs of a serious problem may take more time to appear. For this reason,it is important for you to watch for any new symptoms, problems,or worsening of your condition. Over the next few days, the abdominal pain may come and go, or be continuous. Other common symptoms can include nausea and vomiting. Sometimes it can be difficult to tell if you feel nauseous, you may just feel bad and not associate that feeling with nausea. Constipation, diarrhea, and a fever may go along with the pain. The pain may continue even if treated correctly over the following days. Depending on how things go, sometimes the cause can become clear and may require further or different treatment. Additional evaluations, medications, or tests may be needed. Home care Your health care provider may prescribe medications for pain, symptoms, or an infection. Follow the health care provider's instructions for taking these medications. General care Rest until your next exam. No strenuous activities. Try to find positions that ease discomfort. A small pillow placed on the abdomen may help relieve pain. Something warm on your abdomen (such as a heating pad) may help, but be careful not to burn yourself. Diet Do not force yourself to eat, especially if having cramps, vomiting, or diarrhea. Water is important so you do not get dehydrated. Soup may also be good. Sports drinks may also help, especially if they are not too acidic. Make sure you don't drink sugary drinks as this can make things worse. Take liquids in small amounts. Do not guzzle them. Caffeine sometimes makes the pain and cramping worse. Avoid dairy products if you have vomiting or diarrhea. Don't eat large amounts at a time. Wait a few minutes between bites. Eat a diet low in fiber (called a low-residue diet). Foods allowed include refined breads, white rice, fruit and vegetable juices without pulp, tender meats. These foods will pass more easily through the intestine. Avoid whole-grain foods, whole fruits and vegetables, meats, seeds and nuts, fried or fatty foods, dairy, alcohol and spicy foods until your symptoms go away. Follow-up care Follow up with your health care provider as instructed, or if your pain does not begin to improve in the next 24 hours. When to seek medical care Seek prompt medical care if any of the following occur: Pain gets worse or moves to the right lower abdomen New or worsening vomiting or diarrhea Swelling of the abdomen Unable to pass stool for more than three days Fever of 100.4F (38C) or higher, or as directed by your healthcare provider. Blood in vomit or bowel movements (dark red or black color) Jaundice (yellow color of eyes and skin) Weakness, dizziness Chest, arm, back, neck or jaw pain Unexpected vaginal bleeding or missed period Call 911 Call emergency services if any of the following occur: Trouble breathing Confusion Fainting or loss of consciousness Rapid heart rate Seizure Abdominal Pain,Possible Appendicitis [Repeat Exam, Female] Based on your visit today, the exact cause of your abdominal (stomach) pain is not certain. However, you do have some of the early signs of APPENDICITIS. Early in an appendix infection the symptoms can be similar to a simple "stomach ache" or "stomach flu". Therefore, the diagnosis can be hard to make. Since an appendix infection is a serious condition, it is important to know if this is the cause of your symptoms. WAITING for more time to pass and repeating the exam is the best way to find out whether you have appendicitis. Within the next 12-24 hours the cause of your stomach pain should become clear. It is important for you to watch for any new symptoms or worsening of your condition. (See below). Home Care: Rest until your next exam. No strenuous activities. Eat a diet low in fiber (called a low-residue diet). Foods allowed include refined breads, white rice, fruit and vegetable juices without pulp, tender meats. These foods will pass more easily through the intestine. Avoid whole-grain foods, whole fruits and vegetables, meats, seeds and nuts, fried or fatty foods, dairy, alcohol and spicy foods until your symptoms go away. In some cases, you may be asked not to eat or drink anything until you are re-examined. Return for another exam exactly as directed. Follow Up with your doctor or this facility as directed. Get Prompt Medical Attention if any of the following occur: Pain gets worse or moves to the right lower abdomen New or worsening vomiting or diarrhea Swelling of the abdomen Unable to pass stool for more than three days Fever of 100.4F (38C) or higher, or as directed by your healthcare provider Blood in vomit or bowel movements (dark red or black color) Weakness, dizziness or fainting Unexpected vaginal bleeding Ovarian Cyst The ovary is a small organ located on each side of the uterus. During each menstrual cycle a tiny egg sac forms in the ovary. If the egg is released but does not occur, this sac usually dissolves. Sometimes, the sac may fill with fluid. It then enlarges into a painful cyst. Usually the cyst will rupture or shrink on its own. In either case, the pain gradually goes away over the next 1-3 days. If the cyst does not shrink or rupture, it may cause continued pain. Home Care: Rest in bed and avoid heavy exertion until you are feeling better. Heat to the lower abdomen usually helps (heating pad or hot packs -- a small towel soaked in hot water). You may use acetaminophen (Tylenol) or ibuprofen (Motrin, Advil) to control pain, unless another pain medicine was prescribed. [NOTE: If you have chronic liver or kidney disease or ever had a stomach ulcer or GI bleeding, talk with your doctor before using these medicines.] Follow Up: See your doctor within the next 2-3 days if your pain doesnt improve. Otherwise, follow up with your doctor after your next period or as directed by our staff. Get Prompt Medical Attention if any of the following occur: Pain worsens or fails to respond to the above measures Fever of 100.4F (38C) or higher, or as directed by your healthcare provider Heavy vaginal bleeding (soaking one pad an hour for three hours) You feel weak or dizzy Fainting Passage of a pink or bernal tissue with menstrual bleeding Tramadol Hydrochloride Oral tablet What is this medicine? TRAMADOL (TRA ma dole) is a pain reliever. It is used to treat moderate to severe pain in adults. How should I use this medicine? Take this medicine by mouth with a full glass of water. Follow the directions on the prescription label. If the medicine upsets your stomach, take it with food or milk. Do not take more medicine than you are told to take. Talk to your food production worker regarding the use of this medicine in children. Special care may be needed. What side effects may I notice from receiving this medicine? Side effects that you should report to your doctor or health critical care educator as soon as possible: allergic reactions like skin rash, itching or hives, swelling of the face, lips, or tongue breathing difficulties, wheezing confusion itching light headedness or fainting spells redness, blistering, peeling or loosening of the skin, including inside the mouth seizures Side effects that usually do not require medical attention (report to your doctor or health critical care educator if they continue or are bothersome): constipation dizziness drowsiness headache nausea, vomiting What may interact with this medicine? Do not take this medicine with any of the following medications: MAOIs like Carbex, Eldepryl, Marplan, Nardil, and Parnate This medicine may also interact with the following medications: alcohol or medicines that contain alcohol antihistamines benzodiazepines bupropion carbamazepine or oxcarbazepine clozapine cyclobenzaprine digoxin furazolidone linezolid medicines for depression, anxiety, or psychotic disturbances medicines for migraine headache like almotriptan, eletriptan, frovatriptan, naratriptan, rizatriptan, sumatriptan, zolmitriptan medicines for pain like pentazocine, buprenorphine, butorphanol, meperidine, nalbuphine, and propoxyphene medicines for sleep muscle relaxants naltrexone phenobarbital phenothiazines like perphenazine, thioridazine, chlorpromazine, mesoridazine, fluphenazine, prochlorperazine, promazine, and trifluoperazine procarbazine warfarin What if I miss a dose? If you miss a dose, take it as soon as you can. If it is almost time for your next dose, take only that dose. Do not take double or extra doses. Where should I keep my medicine? Keep out of the reach of children. Store at room temperature between 15 and 30 degrees C (59 and 86 degrees F). Keep container tightly closed. Throw away any unused medicine after the expiration date. What should I tell my health care provider before I take this medicine? They need to know if you have any of these conditions: brain tumor depression drug abuse or addiction head injury if you frequently drink alcohol containing drinks kidney disease or trouble passing urine liver disease lung disease, asthma, or breathing problems seizures or epilepsy suicidal thoughts, plans, or attempt; a previous suicide attempt by you or a family member an unusual or allergic reaction to tramadol, codeine, other medicines, foods, dyes, or preservatives or trying to get breast-feeding What should I watch for while using this medicine? Tell your doctor or health critical care educator if your pain does not go away, if it gets worse, or if you have new or a different type of pain. You may develop tolerance to the medicine. Tolerance means that you will need a higher dose of the medicine for pain relief. Tolerance is normal and is expected if you take this medicine for a long time. Do not suddenly stop taking your medicine because you may develop a severe reaction. Your body becomes used to the medicine. This does NOT mean you are addicted. Addiction is a behavior related to getting and using a drug for a non-medical reason. If you have pain, you have a medical reason to take pain medicine. Your doctor will tell you how much medicine to take. If your doctor wants you to stop the medicine, the dose will be slowly lowered over time to avoid any side effects. You may get drowsy or dizzy. Do not drive, use machinery, or do anything that needs mental alertness until you know how this medicine affects you. Do not stand or sit up quickly, especially if you are an older patient. This reduces the risk of dizzy or fainting spells. Alcohol can increase or decrease the effects of this medicine. Avoid alcoholic drinks. You may have constipation. Try to have a bowel movement at least every 2 to 3 days. If you do not have a bowel movement for 3 days, call your doctor or health critical care educator. Your mouth may get dry. Chewing sugarless gum or sucking hard candy, and drinking plenty of water may help. Contact your doctor if the problem does not go away or is severe. You have been given the following additional information: Abdominal Pain, Unknown Cause, (Female) Abdominal Pain, Possible Appendicitis (Female) Ovarian Cyst Tramadol Hydrochloride Oral tablet (Electronically signed by Ileana Patel A.R.N.P. 05/13/2017 23:04)
--- NOTE | 2017-05-13 23:04 | ED MAR SUMMARY ---
..... Medication Administration Record [facility] [address] [place] [address] Patient: SILVA BLANC Visit ID: [id number] 22y, F Weight: 64.4 kg Height/Length: 61 in BMI: 26.8 ALLERGIES: No Known Drug Allergy Start 19:42 05/13/2017 Carol Roth R.N., Stop 20:51 05/13/2017 Carol Roth R.N. Medication Administered: IV NS (SALINE), Dose: IV Fluids over 1 hour(s), Rate: 1000 mL/hr, Bolus: 1000 mL over 1 hour(s), Dispensed: 1000 mL bag, Site: #1 left hand. Medication Ordered: IV NS : initial bolus 1000 mL (1000 mL/hr), then none - (NOW). Given 19:42 05/13/2017 Carol Roth R.N. Medication Administered: TORADOL [IVP], Dose: 30 mg IVP over 1 minute(s), Site: #1 left hand. Medication Ordered: Toradol IV 30 mg (NOW).
--- NOTE | 2017-05-13 23:04 | ED MED RECONCILIATION SUMMARY ---
Patient: SILVA BLANC Medication Reconciliation Report [facility] VisitID: [id number] [place] [address] 22y, F Registration Date/Time: 05/13/2017 Weight: 64.4 kg Height/Length: 61 in. BMI: 26.8 ALLERGIES: No Known Drug Allergy The patient's Home Medications are listed below: THE FOLLOWING MEDICATIONS NEED TO BE RECONCILED: Methadone HCl Oral 120mg, daily, substance abuse The source(s) of the original Home Medication information: patient The following Medications were given to the patient in the Emergency Department: IV NS IV Fluids bolus 1000 mL over 1 hour(s), then 1000 mL/hr, administered: 05/13/2017 7:42:00 PM Toradol [IVP] IVP 30 mg, administered: 05/13/2017 7:42:00 PM The following Medications were prescribed to the patient: Ultram 50 mg tablets: take 1-2 orally every 6 hours as needed for pain. Dispense twenty (20). No refills. Substitution is permissible. -- Ileana Patel A.R.N.P.
--- NOTE | 2017-05-13 23:04 | ED MED RECONCILIATION SUMMARY ---
Patient: SILVA BLANC Medication Reconciliation Report [facility] VisitID: [id number] [place] [address] 22y, F Registration Date/Time: 05/13/2017 Weight: 64.4 kg Height/Length: 61 in. BMI: 26.8 ALLERGIES: No Known Drug Allergy The patient's Home Medications are listed below: THE FOLLOWING MEDICATIONS NEED TO BE RECONCILED: Methadone HCl Oral 120mg, daily, substance abuse The source(s) of the original Home Medication information: patient The following Medications were given to the patient in the Emergency Department: IV NS IV Fluids bolus 1000 mL over 1 hour(s), then 1000 mL/hr, administered: 05/13/2017 7:42:00 PM Toradol [IVP] IVP 30 mg, administered: 05/13/2017 7:42:00 PM The following Medications were prescribed to the patient: Ultram 50 mg tablets: take 1-2 orally every 6 hours as needed for pain. Dispense twenty (20). No refills. Substitution is permissible. -- Ileana Patel A.R.N.P.
== END 2017-05-13 21:48 | disposition home or self-care (01) ==
LOC: ED SRH 18:02
DX: N83.291 Other ovarian cyst, right side (principal); Z79.891 Long term (current) use of opiate analgesic; F17.210 Nicotine dependence, cigarettes, uncomplicated
CPT/HCPCS: 90004; 90100; 90148; 90469; 92235; 92530; 93070; 95059